=== PATIENT | female | born 1960 | race Caucasian/White ===

== ENCOUNTER 2018-01-06 13:10 | Emergency (ER) | payer BC, SELFPAY ==
[2018-01-06] MEDS ORDERED: cefTRIAXone\\ROCEPHIN 1 GM VIAL ONE (14:19)
[2018-01-06] MEDS ORDERED: Lidocaine 1% 20 ML MDV ONE (14:19)
--- NOTE | 2018-01-06 14:30 | RAD ---
TWO VIEWS CHEST: COMPARISON: 03/21/15. HISTORY: Fever. FINDINGS: Two views of the chest show normal sized cardiomediastinal silhouette. There is no evidence of consol idation, mass, or pleural effusion. The bones are unremarkable. IMPRESSION: No evidence of acute cardiopulmonary disease. POS: [facility]
== END 2018-01-06 14:45 | disposition home or self-care (01) ==
LOC: MADERS 13:10
DX: J44.1 Chronic obstructive pulmonary disease with (acute) exacerbation (principal); F17.210 Nicotine dependence, cigarettes, uncomplicated; Z79.899 Other long term (current) drug therapy
CPT/HCPCS: 71046; 96372; J0696; J1040; J2001; J7620